=== PATIENT | female | born 1960 | race Caucasian/White ===

== ENCOUNTER 2020-07-29 10:52 | Emergency (ER) | payer OTHER ==
[~2020-07-29] VITALS: Ht 167.6 cm; Wt 65.8 kg
[2020-07-29 10:52] VITALS: BP 145/76
--- NOTE | 2020-07-29 10:52 | NUR ---
ED Nurse Note: Pt MARIAN [id number] [place] motel c/o bilateral leg pain but got worse today. Pt reports pain, tenderness and swelling on right foot onset today, warm to touch. Noted with pressure sore with foul odor on left lower leg. Per pt, she has not been taking atb for months however she regularly goes to an outpatient wound care clinic. Pt has not changed her bandages in the left lower for weeks. AAOx4, verbally responsive. Able to ambulate with cane and assistance. No SOB. Temp in triage is 101.5F. ERMD at bedside.
[2020-07-29] MEDS ORDERED: Vancomycin 1 GM in NS 275 ML IV ONE (11:00)
--- NOTE | 2020-07-29 11:20 | NUR ---
ED Nurse Note: Blood specimen and Covid swab collected, sent to lab.
--- NOTE | 2020-07-29 11:24 | Emergency Room Report ---
History of Present Illness General Chief Complaint: Pain Source: Patient Present Illness HPI Disclaimer: Please note that this report is being documented using DRAGON technology. This can lead to erroneous entry secondary to incorrect interpretation by the dictating instrument. HPI: 51-year-old female history of hypertension presenting for evaluation of leg pain and swelling. Patient states she has chronic infection of the left ankle requiring debridement and multiple hospitalizations. She has not been on antibiotics for months. She goes to wound care regularly on an outpatient basis. She reports pain and swelling around the right lower extremity beginning yesterday. Notes warmth and tenderness around the mid salazar. Denies drainage out of the right knee. Has not changed the bandages for some time in the left lower extremity. Patient found febrile. She is homeless. PMH: Hypertension PSH: Surgical debridement of wound Allergies: Reviewed Social Hx: Reviewed Allergies: Coded Allergies: No Known Allergies (Unverified , 07/29/20) COVID-19 Screening Contact w/high risk pt: No Experienced COVID-19 symptoms?: Yes COVID-19 Testing performed GUM PULLER: No Review of Systems All Other Systems: negative except mentioned in HPI Physical Exam Vital Signs Date Time Temp Pulse Resp B/P (MAP) Pulse Ox O2 Delivery O2 Flow Rate FiO2 07/29/20 10:48 101.5 78 16 145/76 (99) 98 Room Air General: Awake and alert, no acute distress, febrile HEENT: NC/AT. EOMI. Cardiovascular: RRR. S1 and S2 normal. No murmur appreciated Resp: Normal work of breathing. No cough, wheezing or crackles appreciated Abdomen: Obese abdomen. Abdomen is soft, nondistended. Nontender Skin: There is a large nearly circumferential area of purulent drainage and skin ulceration around the left ankle extending from the medial through the posterior and then lateral aspect. No subcutaneous gas appreciated. Healing ulceration over dorsum of the left foot. No active bleeding or discharge. There is erythema and edema that is warm to the touch over the anterior lateral aspect of the right lower extremity below the knee. No skin sloughing. MSK: Normal tone and bulk. Moving all extremities. No obvious deformity. Neuro: Awake and alert. Mentating appropriately. Medical Decision Making Diagnostic Impression: Primary Impression: Cellulitis and abscess of left lower extremity Additional Impressions: YANG (acute kidney injury) Febrile illness ER Course 59-year-old female history of chronic lower extremity wounds presents for evaluation of worsening pain in the right lower extremity. Presentation is consistent with acute cellulitis of the right lower extremity and worsening purulent infection of the left lower extremity chronic wound. Patient treated with vancomycin. Cultures are sent. Labs show evidence of acute kidney injury however there is no baseline for comparison. She arrived febrile and treated with Tylenol. Temperature is improving. No white count noted. Troponin negative. COVID-19 negative. Per her health plan the patient will be transferred to [facility]. Dr. Au is the accepting physician. Will arrange transport. Laboratory Tests Test 07/29/20 11:20 White Blood Count 9.9 K/UL (4.8-10.8) Red Blood Count 3.22 M/UL (4.20-5.40) L Hemoglobin 9.5 G/DL (12.0-16.0) L Hematocrit 30.5 % (37.0-47.0) L Mean Corpuscular Volume 95 FL (80-99) Mean Corpuscular Hemoglobin 29.4 PG (27.0-31.0) Mean Corpuscular Hemoglobin Concent 31.0 G/DL (32.0-36.0) L Red Cell Distribution Width 12.8 % (11.6-14.8) Platelet Count 111 K/UL (150-450) L Mean Platelet Volume 7.4 FL (6.5-10.1) Neutrophils (%) (Auto) % (45.0-75.0) Lymphocytes (%) (Auto) % (20.0-45.0) Monocytes (%) (Auto) % (1.0-10.0) Eosinophils (%) (Auto) % (0.0-3.0) Basophils (%) (Auto) % (0.0-2.0) Neutrophils % (Manual) Pending Lymphocytes % (Manual) Pending Platelet Estimate Pending Platelet Morphology Pending Sodium Level 134 MMOL/L (136-145) L Potassium Level 3.9 MMOL/L (3.5-5.1) Chloride Level 105 MMOL/L (98-107) Carbon Dioxide Level 19 MMOL/L (21-32) L Anion Gap 10 mmol/L (5-15) Blood Urea Nitrogen 28 mg/dL (7-18) H Creatinine 1.6 MG/DL (0.55-1.30) H Estimated Glomerular Filtration Rate 33.1 mL/min (>60) Glucose Level 76 MG/DL (74-106) Lactic Acid Level 1.50 mmol/L (0.4-2.0) Calcium Level 8.3 MG/DL (8.5-10.1) L Phosphorus Level 3.0 MG/DL (2.5-4.9) Magnesium Level 1.7 MG/DL (1.8-2.4) L Total Bilirubin 1.2 MG/DL (0.2-1.0) H Direct Bilirubin 0.9 MG/DL (0.0-0.3) H Aspartate Amino Transferase (AST) 44 U/L (15-37) H Alanine Aminotransferase (ALT) 23 U/L (12-78) Alkaline Phosphatase 68 U/L (46-116) Total Creatine Kinase 224 U/L (26-308) Creatine Kinase MB 2.7 NG/ML (0.0-3.6) Creatine Kinase MB Relative Index 1.2 Troponin I 0.000 ng/mL (0.000-0.056) Total Protein 7.1 G/DL (6.4-8.2) Albumin 2.6 G/DL (3.4-5.0) L Globulin 4.5 g/dL Albumin/Globulin Ratio 0.6 (1.0-2.7) L Microbiology Date/Time Source Procedure Growth Status 07/29/20 11:20 Nasopharynx SARS-CoV-2 RdRp Gene Assay - Final Complete EKG Diagnostic Results Troponin ordered: Yes When was troponin ordered?: Jul 29, 2020 EKG Time: 11:39 Rate: normal Rhythm: NSR ST Segments: no acute changes Other Impression Sinus rhythm, normal axis, normal intervals Rhythm Strip Diag. Results Rhythm Strip Time: 11:39 EP Interpretation: yes Rate: 80s Rhythm: NSR, no PVC's, no ectopy Last Vital Signs Date Time Temp Pulse Resp B/P (MAP) Pulse Ox O2 Delivery O2 Flow Rate FiO2 07/29/20 10:48 101.5 78 16 145/76 (99) 98 Room Air Disposition: SHORT-TERM HOSP Condition: Stable Scripts Unable to Obtain Active Prescriptions or Reported Meds Prakash Christian MD Jul 29, 2020 11:24
[2020-07-29] MEDS ORDERED: Acetaminophen 500mg (ES) tab ORAL ONE (11:30)
[2020-07-29 11:45] LABS: HEMATOCRIT 30.5 % (37.0-47.0); HEMOGLOBIN 9.5 G/DL (12.0-16.0); MEAN CORPUSCULAR VOLUME 95 FL (80-99); PLATELET COUNT 111 K/UL (150-450); RED BLOOD COUNT 3.22 M/UL (4.20-5.40); RED CELL DISTRIBUTION WIDTH 12.8 % (11.6-14.8); WHITE BLOOD COUNT 9.9 K/UL (4.8-10.8)
[2020-07-29 11:53] LABS: CALCIUM 8.3 MG/DL (8.5-10.1); CREATININE 1.6 MG/DL (0.55-1.30); POTASSIUM 3.9 MMOL/L (3.5-5.1)
--- NOTE | 2020-07-29 11:58 | NUR ---
ED Nurse Note: Skin assessment initiated. Noted with pressure sore to right foot and left lower leg. Pictures taken and uploaded.
[2020-07-29 12:06] LABS: ALBUMIN 2.6 G/DL (3.4-5.0); ALBUMIN/GLOBULIN RATIO 0.6 (1.0-2.7); BILIRUBIN,TOTAL 1.2 MG/DL (0.2-1.0); CKMB 2.7 NG/ML (0.0-3.6)
--- NOTE | 2020-07-29 12:30 | NUR ---
ED Nurse Note: Urine sent to lab.
[2020-07-29 12:42] LABS: BILIRUBIN,DIRECT 0.9 MG/DL (0.0-0.3)
[2020-07-29 13:04] VITALS: BP 148/75
--- NOTE | 2020-07-29 13:04 | NUR ---
ED Nurse Note: Report given to Tho WILLIS from [facility].
[2020-07-29 13:05] VITALS: BP 148/75
--- NOTE | 2020-07-29 13:05 | NUR ---
TRANSFER: Pt cleared to be transferred to [facility]. Report given to Tho WILLIS. Picked up by 2 EMT via [facility]. Pt AAOx4, verbally responsive. No SOB, on room air. IV line on left forearm 20g patent and intact. All belongings sent with the patient.
[2020-07-29 13:08] LABS: APPEARANCE,URINE SLIGHTLY CLOUDY; BILIRUBIN, URINE NEGATIVE (NEGATIVE); GLUCOSE, URINE (UA) NEGATIVE (NEGATIVE); KETONES,URINE NEGATIVE (NEGATIVE); LEUKOCYTE ESTERASE ,URINE 3+ (NEGATIVE); NITRITE,URINE POSITIVE (NEGATIVE); PH,URINE 6 (4.5-8.0); PROTEIN,URINE 3+ (NEGATIVE); UROBILINOGEN,URINE 4 MG/DL (0.0-1.0)
[2020-07-29 13:19] LABS: COLOR,URINE YELLOW
--- NOTE | 2020-07-31 19:24 | Cardiology Report ---
APPROVED REPORT EKG Measurement Heart [id number] <Conclusion> Normal sinus rhythm Prolonged QT Abnormal ECG
== END 2020-07-29 13:05 | disposition short-term general hospital (02) ==
LOC: EDBD 10:52 → EMR 11:32
DX: L03.116 Cellulitis of left lower limb (principal); N17.9 Acute kidney failure, unspecified; R50.9 Fever, unspecified; I10 Essential (primary) hypertension; Z20.828 Contact with and (suspected) exposure to other viral communicable diseases
CPT/HCPCS: 36415; 80053; 81003; 82248; 82550; 82553; 83605; 83735; 84100; 84484; 85007; 85025; 87040; 87086; 87181; 93005; 96365; J3370; J7050; U0002; Z7502; 99284